=== PATIENT | female | born 1960 | race Caucasian/White ===

== ENCOUNTER 2016-09-23 12:42 | Emergency (ER) | payer OTHER ==
[~2016-09-23] VITALS: Ht 167.6 cm; Wt 104.3 kg
[~2016-09-23 12:42] MED LIST: BIAXIN500 MG PO; CLARITIN10 MG PO; VICODIN 5/500 505 MG PO; VOLTAREN50 M1 PO
[2016-09-23] MEDS ORDERED: BUSPIRONE HCL10 MG PO (12:50)
[2016-09-23] MEDS ORDERED: FLUOXETINE HCL40 MG PO (12:50)
[2016-09-23] MEDS ORDERED: IBUPROFEN600 MG PO (14:31)
== END 2016-09-23 14:44 | disposition home or self-care (01) ==
LOC: ED 12:42
DX: F07.81 Postconcussional syndrome (principal); F17.200 Nicotine dependence, unspecified, uncomplicated; Z88.1 Allergy status to other antibiotic agents